=== PATIENT | female | born 1950 | race Caucasian/White ===

== ENCOUNTER → 2018-09-04 | Outpatient (REF) | payer MEDICARE, OTHER ==
[2018-09-04 11:46] LABS: ALBUMIN 3.7 g/dL (3.2-5.0); ALKALINE PHOSPHATASE 155 u/l (38-126); ANION GAP 14 (6-22 (CALC)); BILIRUBIN, TOTAL 0.6 mg/dL (0.0-1.4); BUN 8 mg/dL (8-23); BUN/CREATININE RATIO 9 (12-20 (CALC)); CARBON DIOXIDE 29 mmol/l (22-30); CHLORIDE 103 mmol/l (95-108); CREATININE 0.9 mg/dL (0.5-1.0); GFR > 60 ML/MIN (>=60 (CALC)); GFR FOR AFR.AMER. > 60 ML/MIN (>=60 (CALC)); POTASSIUM 4.2 mmol/l (3.5-5.1); SGOT/AST 18 u/l (9-36); SODIUM 142 mmol/l (137-146); TOTAL PROTEIN 6.7 g/dL (6.3-8.2)
== END | disposition home or self-care (01) ==
LOC: LAB 07:57
PROVIDERS: ATTEND Nurse Practitioner
DX: N18.3 Chronic kidney disease, stage 3 (moderate) (principal)

== ENCOUNTER 2023-12-18 10:37 | Emergency (ER) | payer MEDICARE ==
[~2023-12-18] VITALS: Ht 182.9 cm; Wt 114.0 kg
[~2023-12-18 10:37] MED LIST: ASPIRIN 81 LOW81 MG PO; CALCIUM + D PO; CEPHALEXIN500 M1 PO; LEVOTHYROXIN75 MC1 PO; LIPITOR10 M1 PO; MULTI VIT PO; OMEPRAZOLE DR40 MG PO; VALSARTAN80 MG PO; VITAMIN D5000 UNI1 PO; ZOLPIDEM5 M1 PO
[2023-12-18 10:45] VITALS: BP 147/77
[2023-12-18] MEDS ORDERED: LIDOCAINE W/ EPINEPHRINE 10 MG/ML INJ STI ONE (10:55)
[2023-12-18 11:01] VITALS: BP 130/73
[2023-12-18 11:27] VITALS: BP 130/73
== END 2023-12-18 11:27 | disposition home or self-care (01) ==
LOC: ED 10:37
PROC: 0HQ1XZZ Repair Face Skin, External Approach (ICD-10-PCS; principal; 2023-12-18)
DX: S01.112A Laceration without foreign body of left eyelid and periocular area, initial encounter (principal); I25.10 Atherosclerotic heart disease of native coronary artery without angina pectoris; J44.9 Chronic obstructive pulmonary disease, unspecified; W01.0XXA Fall on same level from slipping, tripping and stumbling without subsequent striking against object, initial encounter; Y92.000 Kitchen of unspecified non-institutional (private) residence as the place of occurrence of the external cause; Z96.653 Presence of artificial knee joint, bilateral; Z96.642 Presence of left artificial hip joint